=== PATIENT | female | born 1955 | race Two or more races ===

== ENCOUNTER 2017-03-09 11:14 | Emergency (ER) | payer OTHER, SELFPAY ==
[~2017-03-09] VITALS: Ht 147.3 cm; Wt 72.3 kg
[2017-03-09 12:07] LABS: HEMATOCRIT 44.2 % (34.6-47.8); HEMOGLOBIN 15.3 g/dL (11.7-16.4); WHITE BLOOD COUNT 12.2 x10^3/uL (3.4-10)
[2017-03-09 12:19] LABS: BLOOD UREA NITROGEN 20 mg/dL (7-18)
[2017-03-09 12:23] LABS: ASPARTATE AMINO TRANSFERASE 11 U/L (15-37)
[2017-03-09] MEDS ORDERED: LOSA100T6 PO (14:10)
[2017-03-09] MEDS ORDERED: ONDANSETRON 2MG/ML, 2ML IVPush ONE (14:30)
[2017-03-09] MEDS ORDERED: SODIUM CHLORIDE 0.9% 1,000ML IVBOLUS ONE (14:30)
[2017-03-09] MEDS ORDERED: SODIUM CHLORIDE FLUSH 10ML SYR IVF ONE (14:30)
[2017-03-09] MEDS ORDERED: MORPHINE SULFATE 4 MG/ML, 1ML IVPush PRN (14:30)
[2017-03-09] MEDS ORDERED: MORPHINE SULFATE 4 MG/ML, 1ML ONE (14:47)
[2017-03-09] MEDS ORDERED: ONDANSETRON 2MG/ML, 2ML ONE (14:47)
[2017-03-09] MEDS ORDERED: OMNIPAQUE 350 MG/ML, 100ML BOTTLE ONE (15:16)
[2017-03-09 16:47] VITALS: BP 116/83
== END 2017-03-09 16:50 | disposition home or self-care (01) ==
LOC: ED 15:38
DX: R10.13 Epigastric pain (principal); R10.12 Left upper quadrant pain; R10.32 Left lower quadrant pain; R19.7 Diarrhea, unspecified
CPT/HCPCS: 36415; 74177; 80053; 81003; 83690; 85025; 96361; 96374; 96375; 99285; J2405; J7030; Q9967